=== PATIENT | female | born 1965 ===

== ENCOUNTER 2017-05-05 02:55 | Inpatient (IN) | payer MEDICARE ==
[2017-05-05 03:25] VITALS: BP 133/87
[2017-05-05 05:22] LABS: Basophils % (Auto) 0.5 % (0.0-1.8); Eosinophils % (Auto) 1.4 % (0.0-4.3); Hematocrit 36.5 % (30.3-42.9); Hemoglobin 12.2 gm/dl (10.1-14.3); Mean Corpuscular HGB Conc 33 % (30-34); Mean Corpuscular Volume 74 fl (79-97); Platelet Count 417 K/mm3 (140-440); Red Blood Count 4.92 M/mm3 (3.65-5.03); Red Cell Distribution Width 19.2 % (13.2-15.2); White Blood Count 5.3 K/mm3 (4.5-11.0)
[2017-05-05 05:29] LABS: Mean Corpuscular Hemoglobin 25 pg (28-32)
[2017-05-05 05:41] LABS: Alanine Aminotransferase 24 units/L (7-56); Albumin 4.4 g/dL (3.9-5); Alkaline Phosphatase 67 units/L (35-129); Anion Gap 17 mmol/L; BUN/Creatinine Ratio 20; Blood Urea Nitrogen 12 mg/dL (7-17); Calcium 9.1 mg/dL (8.4-10.2); Carbon Dioxide 31 mmol/L (22-30); Chloride 97.6 mmol/L (98-107); Glucose 103 mg/dL (65-100); Lipase 18 units/L (13-60); Potassium 3.4 mmol/L (3.6-5.0); Sodium 142 mmol/L (137-145); Total Protein 8.6 g/dL (6.3-8.2)
[2017-05-05 07:11] LABS: Bacteria,Urine 1+ /HPF (Negative); Bilirubin,Urine NEG (Negative); Blood,Urine NEG (Negative); Ketones,Urine NEG (Negative); Leukocyte Esterase,Urine NEG (Negative); Mucus,Urine 3+ /HPF; Nitrite,Urine NEG (Negative); Urobilinogen,Urine < 2.0 mg/dL (<2.0)
[2017-05-05] MEDS ORDERED: K-DUR PO ONE (09:06)
[2017-05-05] MEDS ORDERED: NACL 0.9% 500 ML 500 ML IV ONE (09:18)
[2017-05-05] MEDS ORDERED: CARAFATE PO ONE (09:18)
[2017-05-05] MEDS ORDERED: PEPCID IV ONE (09:18)
[2017-05-05] MEDS ORDERED: REGLAN IV ONE (09:19)
--- NOTE | 2017-05-05 09:20 | Emergency Department Report ---
ED General Adult HPI - General Chief complaint: Abdominal Pain Stated complaint: ABDOMINAL PAIN Time Seen by Provider: 05/05/17 09:01 Source: patient, EMS (ems notes not available at time of chart dictation), RN notes reviewed Mode of arrival: Ambulatory Limitations: No Limitations - History of Present Illness Initial comments: This is a 51-year-old female who was previously unknown to this provider. She endorses a past medical history of hypertension, asthma, stroke when she was in her 30s, bilateral tubal ligation. Patient presents to the ER with a complaint of dizziness, nausea, subjective unsteady gait, and abdominal pain. Her dizziness and nausea have been present for 4 days. Patient is not certain if the symptoms are constant or if they're intermittent. She cannot describe exacerbating or relieving factors. She denies loss of vision, numbness, weakness, slurred speech. She also complains of abdominal pain. The abdominal pain is diffuse. It started this morning. He does not have exacerbating or relieving factors. The patient is not sure if it radiates anywhere. Patient denies irritative and obstructive urinary symptoms, patient describes a few episodes of nonbloody, nonbilious emesis. Contrary to what is documented in the triage report, patient reports abdominal pain to me has been present for one day and not 3 days. She also incidentally describes left tooth pain, tooth #30/31, which has been present for a few days. There is no trismus, stridor, malocclusion, the pain and acute increases with palpation, range of motion, hot and cold fluids. -: Gradual Location: mouth, abdomen Quality: aching Improves with: other (per hpi) Worsens with: other (per hpi) Associated Symptoms: malaise, nausea/vomiting, weakness, other (per hpi). denies: confusion, chest pain, cough, diaphoresis, fever/chills, loss of appetite, shortness of breath, syncope - Related Data Allergies Allergy/AdvReac Type Severity Reaction Status Date / Time ondansetron Allergy Rash Verified 05/05/17 04:41 ED Review of Systems ROS: Stated complaint: ABDOMINAL PAIN Other details as noted in HPI ED Past Medical Hx - Past Medical History Previous Medical History?: Yes Hx Hypertension: Yes Hx CVA: Yes (at 33 yrs old no deficits) Hx Asthma: Yes - Social History Smoking Status: Never Smoker ED Physical Exam - General Limitations: No Limitations General appearance: alert, in no apparent distress - Head Head exam: Present: atraumatic, normocephalic - Eye Eye exam: Present: normal appearance, PERRL, EOMI, other (visual acuity intact to finger counting, color perception, reading at a close distance). Absent: nystagmus - ENT ENT exam: Present: normal exam, normal orophraynx, mucous membranes moist, normal external ear exam - Neck Neck exam: Present: normal inspection, full ROM. Absent: tenderness, meningismus - Respiratory Respiratory exam: Present: normal lung sounds bilaterally. Absent: respiratory distress, chest wall tenderness - Cardiovascular Cardiovascular Exam: Present: normal rhythm, tachycardia, normal heart sounds. Absent: systolic murmur, diastolic murmur, rubs, gallop - GI/Abdominal GI/Abdominal exam: Present: soft, normal bowel sounds. Absent: distended, tenderness, guarding, pulsatile mass - Extremities Exam Extremities exam: Present: normal inspection, full ROM, normal capillary refill. Absent: pedal edema, joint swelling, calf tenderness - Back Exam Back exam: Present: normal inspection - Neurological Exam Neurological exam: Present: alert, oriented X3, CN II-XII intact, normal gait ( normal gait, normal tandem gait, normal heel to shay, negative Romberg, no pass pointing, negative pronator drift), other (Extraocular movements intact. Tongue midline. No facial droop. Facial sensation intact to light touch in the V1, V2, V3 distribution bilaterally. 5 and 5 strength in 4 extremities.. Sensation is intact to light touch in 4 extremities.). Absent: motor sensory deficit - Psychiatric Psychiatric exam: Present: normal affect, normal mood - Skin Skin exam: Present: warm, dry, intact, normal color. Absent: rash ED Course Vital Signs 05/05/17 05/05/17 03:22 04:44 Temperature 98.1 F 98.1 F Pulse Rate 110 H 95 H Respiratory 18 18 Rate Blood Pressure 133/87 133/87 O2 Sat by Pulse 96 99 Oximetry - Reevaluation(s) Reevaluation #1: 05/05/17 09:51 Differential diagnosis, including without limited to: Stroke, dehydration, viral syndrome, enteritis, urinary tract infection, Assessment and plan: 51-year-old female with complaint of resolved abdominal pain, and nonspecific dizziness, and subjective feeling of unsteady gait. She is afebrile with reassuring vital signs with the exception of tachycardia, and walks with a steady gait and has no abnormal neurologic findings. She is somewhat tachycardic, but endorses no pulmonary embolus or DVT risk factors. EKG pending, CT scan of the brain pending, CT scan the abdomen and pelvis pending, patient will be medicated with pain medication and nausea medication, we will reassess once initial data points have resulted. NIH score of 0 this time, GCS of 15 at this time. No pulmonary embolus or DVT risk factors, low risk by well's criteria. Reevaluation #2: 05/05/17 11:35 CT scan of the abdomen and pelvis negative. CT scan of the brain is negative. Aspirin is ordered. Case presented to the Hospital physician, Dr. Veliz will accept the patient to the medical service for further evaluation to exclude subacute stroke. not A TPA candidate as patient's symptoms have been present for a few days. Given her normal neurologic examination my exam, I see no indication for emergent CT angiogram. ED Medical Decision Making - Lab Data Result diagrams: 05/05/17 05:09 05/05/17 05:09 Vital Signs 05/05/17 05/05/17 03:22 04:44 Temperature 98.1 F 98.1 F Pulse Rate 110 H 95 H Respiratory 18 18 Rate Blood Pressure 133/87 133/87 O2 Sat by Pulse 96 99 Oximetry Lab Results 05/05/17 05/05/17 05/05/17 Range/Units 05:09 05:09 05:09 WBC 5.3 (4.5-11.0) K/mm3 RBC 4.92 (3.65-5.03) M/mm3 Hgb 12.2 (10.1-14.3) gm/dl Hct 36.5 (30.3-42.9) % MCV 74 L (79-97) fl MCH 25 L (28-32) pg MCHC 33 (30-34) % RDW 19.2 H (13.2-15.2) % Plt Count 417 (140-440) K/mm3 Lymph % (Auto) 30.0 (13.4-35.0) % [place] % (Auto) 9.1 H (0.0-7.3) % Eos % (Auto) 1.4 (0.0-4.3) % Baso % (Auto) 0.5 (0.0-1.8) % Lymph # 1.6 (1.2-5.4) K/mm3 [place] # 0.5 (0.0-0.8) K/mm3 Eos # 0.1 (0.0-0.4) K/mm3 Baso # 0.0 (0.0-0.1) K/mm3 Seg Neutrophils % 59.0 (40.0-70.0) % Seg Neutrophils # 3.1 (1.8-7.7) K/mm3 Sodium 142 (137-145) mmol/L Potassium 3.4 L (3.6-5.0) mmol/L Chloride 97.6 L (98-107) mmol/L Carbon Dioxide 31 H (22-30) mmol/L Anion Gap 17 mmol/L BUN 12 (7-17) mg/dL Creatinine 0.6 L (0.7-1.2) mg/dL Estimated GFR > 60 ml/min BUN/Creatinine Ratio 20 % Glucose 103 H (65-100) mg/dL Calcium 9.1 (8.4-10.2) mg/dL Total Bilirubin 0.40 (0.1-1.2) mg/dL AST 29 (5-40) units/L ALT 24 (7-56) units/L Alkaline Phosphatase 67 (35-129) units/L Troponin T (0.00-0.029) ng/mL Total Protein 8.6 H (6.3-8.2) g/dL Albumin 4.4 (3.9-5) g/dL Albumin/Globulin Ratio 1.0 % Lipase 18 (13-60) units/L HCG, Qual Negative (Negative) Urine Color (Yellow) Urine Turbidity (Clear) Urine pH (5.0-7.0) Ur Specific [place] (1.003-1.030) Urine Protein (Negative) mg/dL Urine Glucose (UA) (Negative) mg/dL Urine Ketones (Negative) mg/dL Urine Blood (Negative) Urine Nitrite (Negative) Urine Bilirubin (Negative) Urine Urobilinogen (<2.0) mg/dL Ur Leukocyte Esterase (Negative) Urine WBC (Auto) (0.0-6.0) /HPF Urine RBC (Auto) (0.0-6.0) /HPF U Epithel Cells (Auto) (0-13.0) /HPF Urine Bacteria (Auto) (Negative) /HPF Hyaline Casts /LPF Urine Mucus /HPF 05/05/17 05/05/17 Range/Units 05:09 06:39 WBC (4.5-11.0) K/mm3 RBC (3.65-5.03) M/mm3 Hgb (10.1-14.3) gm/dl Hct (30.3-42.9) % MCV (79-97) fl MCH (28-32) pg MCHC (30-34) % RDW (13.2-15.2) % Plt Count (140-440) K/mm3 Lymph % (Auto) (13.4-35.0) % [place] % (Auto) (0.0-7.3) % Eos % (Auto) (0.0-4.3) % Baso % (Auto) (0.0-1.8) % Lymph # (1.2-5.4) K/mm3 [place] # (0.0-0.8) K/mm3 Eos # (0.0-0.4) K/mm3 Baso # (0.0-0.1) K/mm3 Seg Neutrophils % (40.0-70.0) % Seg Neutrophils # (1.8-7.7) K/mm3 Sodium (137-145) mmol/L Potassium (3.6-5.0) mmol/L Chloride (98-107) mmol/L Carbon Dioxide (22-30) mmol/L Anion Gap mmol/L BUN (7-17) mg/dL Creatinine (0.7-1.2) mg/dL Estimated GFR ml/min BUN/Creatinine Ratio % Glucose (65-100) mg/dL Calcium (8.4-10.2) mg/dL Total Bilirubin (0.1-1.2) mg/dL AST (5-40) units/L ALT (7-56) units/L Alkaline Phosphatase (35-129) units/L Troponin T < 0.010 (0.00-0.029) ng/mL Total Protein (6.3-8.2) g/dL Albumin (3.9-5) g/dL Albumin/Globulin Ratio % Lipase (13-60) units/L HCG, Qual (Negative) Urine Color Yellow (Yellow) Urine Turbidity Clear (Clear) Urine pH 5.0 (5.0-7.0) Ur Specific [place] 1.024 (1.003-1.030) Urine Protein 100 mg/dl (Negative) mg/dL Urine Glucose (UA) Neg (Negative) mg/dL Urine Ketones Neg (Negative) mg/dL Urine Blood Neg (Negative) Urine Nitrite Neg (Negative) Urine Bilirubin Neg (Negative) Urine Urobilinogen < 2.0 (<2.0) mg/dL Ur Leukocyte Esterase Neg (Negative) Urine WBC (Auto) 4.0 (0.0-6.0) /HPF Urine RBC (Auto) 2.0 (0.0-6.0) /HPF U Epithel Cells (Auto) 23.0 H (0-13.0) /HPF Urine Bacteria (Auto) 1+ (Negative) /HPF Hyaline Casts 4 /LPF Urine Mucus 3+ /HPF - EKG Data -: EKG Interpreted by Ut EKG shows normal: sinus rhythm Rate: tachycardia - EKG Data When compared to previous EKG there are: previous EKG unavailable 05/05/17 10:04 Sinus tachycardia, 102 bpm, normal axis, QTC prolonged, high left ventricular voltage, abnormal EKG, not morphologically consistent with ST elevation myocardial infarction. - Radiology Data Radiology results: pending, report reviewed, image reviewed Critical care attestation.: If time is entered above; I have spent that time in minutes in the direct care of this critically ill patient, excluding procedure time. ED Disposition Clinical Impression: Abdominal pain, History of unsteady gait Disposition: 09 OP ADMIT IP TO THIS HOSP Is pt being admited?: Yes Does the pt Need Aspirin: Yes Condition: Stable Instructions: Abdominal Pain (ED) Referrals: FABIÁN ALMANZA MD [Primary Care Provider] - 3-5 Days
[2017-05-05] MEDS ORDERED: BENTYL PO ONE (10:00)
--- NOTE | 2017-05-05 11:04 | Cat Scan Report ---
CT HEAD WITHOUT CONTRAST: HISTORY: CVA, ataxia, nausea and vomiting. TECHNIQUE: Sequential 2.5mm CT images. COMPARISON: none. FINDINGS: Cerebral Parenchyma: Within normal limits. Cerebellum: Within normal limits. Brainstem: Within normal limits. Ventricles: Normal. Sella: Normal. Extra-axial spaces: Normal. Basal Cisterns: Normal. Intracranial Hemorrhage: None. Midline Shift: None. Calvarium: Normal. Sinuses: Normal. Mastoid Air Cells: Normal. Visualized Orbits: Normal. IMPRESSION: Cranial CT scan within normal limits.
--- NOTE | 2017-05-05 11:06 | Cat Scan Report ---
CT ABDOMEN PELVIS WITH CONTRAST: HISTORY: Nausea and vomiting. COMPARISON: none. TECHNIQUE: Helical CT in 1.25mm intervals following IV contrast. Sagittal and coronal reconstructions. FINDINGS: Lung bases: Normal. Liver: Normal. Biliary system: Normal. Pancreas: Normal. Spleen: Normal. Kidneys/ureters/bladder: Normal. Adrenal glands: Normal. Aorta: Normal. Intestines: Normal. Appendix: Normal. Pelvic viscera: Normal. Ascites: None. Adenopathy: None. Musculoskeletal: Normal. IMPRESSION: Unremarkable CT scan of the abdomen and pelvis with contrast.
[2017-05-05] MEDS ORDERED: BABY ASPIRIN PO ONE (11:36)
--- NOTE | 2017-05-05 11:51 | History and Physical Report ---
History of Present Illness Chief complaint: I feel weak, and my stomach feels queasy History of present illness: 51 YO Female with HTN, CVA, Obesity, Asthma presents to ED for evaluation. Pt states that she has been feeling weak, dizzy, and nauseated over the past 4 days with persistent symptoms over the same time period. Pt also acknowledges unsteady gait. Pt denies loss of vision, numbness, weakness, slurred speech, fever, chills, CP, Palpitations, NVD, Prolonged travel/immobility, Individual/ Family history of DVT/PE. She also complains of abdominal pain. The abdominal pain is diffuse, present over the past 24 hours, nonradiating, without exacerbating or relieving factors. Pt seen and evaluated in ED and found to have symptoms suspicious for acute CVA versus complicated migraine, as well as abdominal pain. Pt admitted to telemetry. Past History Past Medical History: hypertension, stroke, other (Asthma) Past Surgical History: Other (Tubal ligation) Social history: single. denies: smoking, alcohol abuse, prescription drug abuse Family history: diabetes, hypertension Medications and Allergies Allergies Allergy/AdvReac Type Severity Reaction Status Date / Time ondansetron Allergy Rash Verified 05/05/17 04:41 Home Medications Medication Instructions Recorded Confirmed Last Taken Type amLODIPine [Norvasc] 10 mg PO DAILY 05/05/17 05/05/17 05/05/17 History Review of Systems Constitutional: weakness, no weight loss, no weight gain, no fever, no chills, no sweats Ears, nose, mouth and throat: no ear pain, no ear discharge, no tinnitis, no decreased hearing, no nose pain, no nasal congestion Breasts: no change in shape, no swelling, no mass Cardiovascular: no chest pain, no orthopnea, no palpitations, no rapid/ irregular heart beat, no edema Respiratory: no cough, no cough with sputum, no excessive sputum, no hemoptysis Gastrointestinal: abdominal pain, no nausea, no vomiting, no diarrhea, no constipation Genitourinary Female: no pelvic pain, no flank pain, no menorrhagia, no dysuria , no urinary frequency, no urgency Rectal: no pain, no incontinence, no bleeding Musculoskeletal: no neck stiffness, no neck pain, no shooting arm pain, no arm numbness/tingling, no low back pain Integumentary: no rash, no pruritis, no redness, no sores, no wounds Neurological: no paralysis, no weakness, no parathesias, no numbness, no tingling, no seizures Psychiatric: no anxiety, no memory loss, no change in sleep habits, no sleep disturbances, no insomnia, no hypersomnia Endocrine: no cold intolerance, no heat intolerance, no polyphagia, no excessive thirst, no polydipsia, no polyuria, no nocturia Hematologic/Lymphatic: no easy bruising, no easy bleeding Allergic/Immunologic: no urticaria, no allergic rhinitis, no wheezing Exam - Constitutional Vitals: Temp Pulse Resp BP Pulse Ox 98.1 F 95 H 18 133/87 99 05/05/17 04:44 05/05/17 04:44 05/05/17 04:44 05/05/17 04:44 05/05/17 04:44 General appearance: Present: mild distress - EENT Eyes: Present: PERRL ENT: hearing intact, clear oral mucosa - Neck Neck: Present: supple, normal ROM - Respiratory Respiratory effort: normal Respiratory: bilateral: CTA - Cardiovascular Heart Sounds: Present: S1 & S2. Absent: rub, click - Extremities Extremities: pulses symmetrical, No edema Peripheral Pulses: within normal limits - Abdominal General gastrointestinal: Present: soft, non-tender, non-distended, normal bowel sounds Female genitourinary: Present: normal - Integumentary Integumentary: Present: clear, warm, dry - Musculoskeletal Musculoskeletal: gait normal, strength equal bilaterally - Psychiatric Psychiatric: appropriate mood/affect, intact judgment & insight - Neurologic Neurologic: CNII-XII intact, moves all extremities Results - Labs CBC & Chem 7: 05/05/17 05:09 05/05/17 05:09 Labs: Abnormal lab results 05/05/17 05/05/17 05/05/17 Range/Units 05:09 05:09 06:39 MCV 74 L (79-97) fl MCH 25 L (28-32) pg RDW 19.2 H (13.2-15.2) % [place] % (Auto) 9.1 H (0.0-7.3) % Potassium 3.4 L (3.6-5.0) mmol/L Chloride 97.6 L (98-107) mmol/L Carbon Dioxide 31 H (22-30) mmol/L Creatinine 0.6 L (0.7-1.2) mg/dL Glucose 103 H (65-100) mg/dL Total Protein 8.6 H (6.3-8.2) g/dL U Epithel Cells (Auto) 23.0 H (0-13.0) /HPF Assessment and Plan - Patient Problems (1) CVA (cerebral vascular accident) Status: Acute Qualifiers: Precerebral and cerebral artery: middle cerebral artery Laterality of affected vessel: left Plan to address problem: Stroke protocol: CT Head, MRI Brain, MRA Brain, Echo, Carotid Doppler, Neuro checks, antiplatelet therapy, lipid panel, (2) HTN (hypertension) Status: Acute Plan to address problem: Monitor BP Q shift, Hydralazine prn after 24 hours for systolic above 175, permissive hypertension overnight (3) Abdominal pain Status: Acute Plan to address problem: CT abdomen Pelvis, serial abdominal exam. (4) DVT prophylaxis Status: Acute
[2017-05-05] MEDS ORDERED: ZOFRAN IV PRN (11:52)
[2017-05-05] MEDS ORDERED: MILK OF MAGNESIA PO PRN (11:52)
[2017-05-05] MEDS ORDERED: TYLENOL PO PRN (11:52)
[2017-05-05] MEDS ORDERED: SODIUM CHLORIDE FLUSH SYRINGE 10 ML IV PRN (11:52)
[2017-05-05] MEDS ORDERED: PHENERGAN PR PRN (11:52)
[2017-05-05] MEDS ORDERED: REGLAN PO PRN (11:52)
[2017-05-05] MEDS ORDERED: DULCOLAX PR PRN (11:52)
[2017-05-05] MEDS ORDERED: PROVENTIL IH PRN (11:52)
[2017-05-05] MEDS ORDERED: PRAVACHOL PO SCH (22:00)
[2017-05-06] MEDS ORDERED: PLAVIX PO SCH (10:00)
== END 2017-05-05 13:08 | disposition left against medical advice (07) | DRG 66 ==
LOC: ED 02:55 → 4A 11:52
PROVIDERS: ADMIT Internal Medicine; ATTEND Internal Medicine
DX: I63.9 Cerebral infarction, unspecified (principal); I10 Essential (primary) hypertension; J45.909 Unspecified asthma, uncomplicated; R26.81 Unsteadiness on feet; Z53.21 Procedure and treatment not carried out due to patient leaving prior to being seen by health care provider; E66.9 Obesity, unspecified; R10.9 Unspecified abdominal pain; Z68.36 Body mass index [BMI] 36.0-36.9, adult; Z86.711 Personal history of pulmonary embolism; Z86.718 Personal history of other venous thrombosis and embolism; Z98.51 Tubal ligation status; Z88.8 Allergy status to other drugs, medicaments and biological substances; Z86.73 Personal history of transient ischemic attack (TIA), and cerebral infarction without residual deficits
CPT/HCPCS: 36415; 70450; 74177; 80053; 81001; 83690; 83735; 84484; 84703; 85025; 93005; 93010; 96374; 96375; A9270-GY; J2765; J7040; Q9967

== ENCOUNTER 2017-05-10 03:36 | Emergency (ER) | payer MEDICARE ==
[2017-05-10 04:30] VITALS: BP 133/74
[2017-05-10 05:11] LABS: Basophils % (Auto) 0.1 % (0.0-1.8); Eosinophils % (Auto) 1.6 % (0.0-4.3); Hematocrit 35.8 % (30.3-42.9); Hemoglobin 11.7 gm/dl (10.1-14.3); Mean Corpuscular HGB Conc 33 % (30-34); Mean Corpuscular Volume 75 fl (79-97); Platelet Count 364 K/mm3 (140-440); Red Blood Count 4.78 M/mm3 (3.65-5.03); Red Cell Distribution Width 19.4 % (13.2-15.2); White Blood Count 5.5 K/mm3 (4.5-11.0)
[2017-05-10 05:12] LABS: Mean Corpuscular Hemoglobin 24 pg (28-32)
[2017-05-10 05:31] LABS: Bilirubin,Urine NEG (Negative); Blood,Urine NEG (Negative); Ketones,Urine NEG (Negative); Leukocyte Esterase,Urine SM (Negative); Mucus,Urine FEW /HPF; Nitrite,Urine NEG (Negative); RBC,Urine < 1.0 /HPF (0.0-6.0)
[2017-05-10 05:35] LABS: Alanine Aminotransferase 42 units/L (7-56); Albumin 4.2 g/dL (3.9-5); Alkaline Phosphatase 56 units/L (35-129); Anion Gap 15 mmol/L; BUN/Creatinine Ratio 28; Blood Urea Nitrogen 14 mg/dL (7-17); Calcium 8.8 mg/dL (8.4-10.2); Carbon Dioxide 30 mmol/L (22-30); Chloride 102.9 mmol/L (98-107); Glucose 104 mg/dL (65-100); Lipase 15 units/L (13-60); Potassium 3.6 mmol/L (3.6-5.0); Sodium 144 mmol/L (137-145); Total Protein 8.3 g/dL (6.3-8.2)
== END 2017-05-10 07:35 | disposition left against medical advice (07) ==
LOC: ED 03:36
DX: R11.2 Nausea with vomiting, unspecified (principal); Z53.21 Procedure and treatment not carried out due to patient leaving prior to being seen by health care provider
CPT/HCPCS: 36415; 80053; 81001; 83690; 84703; 85025

== ENCOUNTER 2017-05-17 07:42 | Emergency (ER) | payer MEDICARE ==
[2017-05-17 07:53] VITALS: BP 139/77
[2017-05-17 08:31] LABS: Bacteria,Urine 1+ /HPF (Negative); Bilirubin,Urine NEG (Negative); Blood,Urine NEG (Negative); Color,Urine Yellow (Yellow); Mucus,Urine 3+ /HPF; Nitrite,Urine NEG (Negative); Urobilinogen,Urine < 2.0 mg/dL (<2.0)
[2017-05-17 08:51] LABS: Basophils # (Auto) 0.1 K/mm3 (0.0-0.1); Basophils % (Auto) 1.3 % (0.0-1.8); Eosinophils # (Auto) 0.1 K/mm3 (0.0-0.4); Eosinophils % (Auto) 2.4 % (0.0-4.3); Hematocrit 35.1 % (30.3-42.9); Hemoglobin 11.6 gm/dl (10.1-14.3); Lymphocytes # (Auto) 1.8 K/mm3 (1.2-5.4); Lymphocytes % (Auto) 40.3 % (13.4-35.0); Mean Corpuscular HGB Conc 33 % (30-34); Mean Corpuscular Volume 77 fl (79-97); Monocytes # (Auto) 0.4 K/mm3 (0.0-0.8); Monocytes % (Auto) 9.5 % (0.0-7.3); Platelet Count 396 K/mm3 (140-440); Red Blood Count 4.59 M/mm3 (3.65-5.03); Red Cell Distribution Width 19.7 % (13.2-15.2)
[2017-05-17 08:55] LABS: Mean Corpuscular Hemoglobin 25 pg (28-32)
[2017-05-17 09:07] LABS: Alanine Aminotransferase 56 units/L (7-56); Albumin 4.2 g/dL (3.9-5); BUN/Creatinine Ratio 24; Blood Urea Nitrogen 12 mg/dL (7-17); Calcium 8.8 mg/dL (8.4-10.2); Hemolysis Index 8
== END 2017-05-17 09:20 | disposition left against medical advice (07) ==
LOC: ED 07:42
DX: R11.2 Nausea with vomiting, unspecified (principal); Z53.21 Procedure and treatment not carried out due to patient leaving prior to being seen by health care provider
CPT/HCPCS: 36415; 80053; 81001; 85025

== ENCOUNTER 2017-06-04 19:47 | Emergency (ER) | payer MEDICARE ==
[2017-06-05] MEDS ORDERED: MOTRIN PO ONE (04:48)
--- NOTE | 2017-06-05 04:48 | Emergency Department Report ---
HPI - General Chief Complaint: Fall Time Seen by Provider: 06/05/17 04:37 - HPI HPI: Patient reports that she has body aches, cough that started yesterday. She denies any fever or chills. She also says she fell on her left side after tripping. She is having body pain especially to her left thigh. Patient able to ambulate without any difficulties. She said her pain steadily 10 and aching. Denies any shortness of breath or chest pain. Denies any fever or chills. Patient has a history of asthma, CVA and hypertension. No over-the- counter medication taken per patient. Patient also requests an albuterol inhaler because she says she has asthma and she ran out. ED Past Medical Hx - Past Medical History Previous Medical History?: Yes Hx Hypertension: Yes Hx CVA: Yes (at 33 yrs old no deficits) Hx Asthma: Yes Additional medical history: Gallstones - Surgical History Past Surgical History?: Yes Additional Surgical History: Tubal - Family History Family history: hypertension - Social History Smoking Status: Never Smoker Substance Use Type: None - Medications Home Medications: Home Medications Medication Instructions Recorded Confirmed Last Taken Type amLODIPine [Norvasc] 10 mg PO DAILY 05/05/17 05/05/17 05/05/17 History Amoxicillin/K Clav Tab [Augmentin 1 tab PO Q12HR 10 Days #20 tab 06/05/17 Unknown Rx 875 mg] Cetirizine HCl [ZyrTEC] 10 mg PO QAM 14 Days #14 capsule 06/05/17 Unknown Rx Fluticasone [Flonase] 1 spray NS QDAY 14 Days #1 bottle 06/05/17 Unknown Rx Ibuprofen [Motrin] 600 mg PO Q8H PRN 5 Days #15 tablet 06/05/17 Unknown Rx ED Review of Systems ROS: Stated complaint: BODYACHE Other details as noted in HPI Comment: All other systems reviewed and negative Constitutional: no symptoms reported Eyes: denies: vision change ENT: congestion. denies: ear pain, throat pain, epistaxis Respiratory: cough. denies: orthopnea, shortness of breath, SOB with exertion, SOB at rest, stridor, wheezing Cardiovascular: denies: chest pain, palpitations, dyspnea on exertion, orthopnea , edema, syncope, paroxysmal nocturnal dyspnea Gastrointestinal: denies: abdominal pain, nausea, vomiting, diarrhea, constipation, hematemesis, melena, hematochezia Genitourinary: denies: dysuria, hematuria Musculoskeletal: arthralgia, myalgia. denies: back pain, joint swelling Skin: denies: rash Neurological: denies: headache, weakness, numbness, paresthesias, confusion, abnormal gait, vertigo Physical Exam - Physical Exam Vital Signs: Vital Signs 06/04/17 06/04/17 19:49 19:58 Temperature 98.0 F 98.0 F Pulse Rate 94 H 96 H Respiratory 18 19 Rate Blood Pressure 162/86 162/86 O2 Sat by Pulse 98 98 Oximetry General: This is a 51-year-old female well-nourished well-developed in no acute distress. Physical Exam: Head: Normocephalic, atraumatic, no abrasion, no bruising and no contusion. Eyes: Biateral pupils equal and reactive to light, bilateral EOM intact.. Bilateral conjunctival and sclera without injection, normal accommodation. No nystagmus Mouth: Moist, no pharyngeal exudate or erythema. No peritonsillar abscesses. Uvula is midline and oral airways patent. Ears: TM congested without erythema. Bilateral EAC without any redness swelling or drainage. No mastoid bone tenderness Nose: Bilateral nasal turbinates congested with erythema and clear drainage. Maxillary and frontal sinuses non-tender to palpate. Neck: Supple, No Cervical adenopathy, full range of motion and no C-spine tenderness. No swelling or tracheal deviation normal reflexes Cardiovascular: S1, S2. Regular rate and rhythm. No murmur. Capillary refill is less then 3 seconds. Lungs: Clear to auscultate bilaterally. No rhonchi, wheezes or rales. No chest wall tenderness. No chest contusion. No bruising to chest. MSK: Strength 5/5 in all extremities. No joint deformity or crepitus. Normal inspection. Full range of motion to all extremities. No laceration, abrasion or ecchymotic area noted. Patient able to fully flex and extend bilateral knees without any difficulties. Bilateral knees nontender to palpate. Abdomen: Non-tender to palpate in all quadrants, no guarding or rebound tenderness, positive bowel sounds in all quadrants. No CVA tenderness. No hernia, bruit or mass. No rigidity or distention. Extremities: No clubbing, cyanosis or edema. +2 pulses. No neurovascular compromise Skin: Clean, dry and intact. No rash or lesions. Neurological: GCS at 15, Pt is alert and oriented 3 speech is clear . Bilateral hand cleaner operator strong and equal. Normal gait. Negative Romberg and no pronator drift. Normal Reflexes. No motor or sensory deficit Back: No vertebral tenderness, no paraspinal tenderness. Normal inspection Psych: Normal mood and behavior ED Course Vital Signs 06/04/17 06/04/17 19:49 19:58 Temperature 98.0 F 98.0 F Pulse Rate 94 H 96 H Respiratory 18 19 Rate Blood Pressure 162/86 162/86 O2 Sat by Pulse 98 98 Oximetry - Reevaluation(s) Reevaluation #1: 06/05/17 05:58 Patient is stable and she was given Motrin 800 mg in the emergency room for pain. ED Medical Decision Making - Medical Decision Making ED course: Patient here report that she has a cold and also fell he and injured her left side complaining of left thigh pain. Physical findings were normal extremities. Patient also has upper respiratory tract infection with cough and congestion and with asthma without any exacerbation. I discussed patient that I will place her on Zyrtec, Flonase. I told her give her prescription for albuterol to take as needed for cough and wheezing. I also discussed with her that I'll give her a prescription for Augmentin and if she is not better with the Zyrtec Flonase then she can add Augmentin. Patient given Motrin 800 mg in emergency room for musculoskeletal pain. Discharged home from emergency room in stable condition with prescription for Zyrtec, Flonase, Augmentin and Motrin. She was given a refill on albuterol inhaler Critical care attestation.: If time is entered above; I have spent that time in minutes in the direct care of this critically ill patient, excluding procedure time. ED Disposition Clinical Impression: Upper respiratory infection with cough and congestion, Arthralgia of left thigh , Fall from ground level Disposition: DC-01 TO HOME OR SELFCARE Is pt being admited?: No Does the pt Need Aspirin: No Condition: Stable Instructions: Asthma (ED), Fall Prevention (ED), Musculoskeletal Pain (ED), Upper Respiratory Infection (ED), Acute Cough (ED) Additional Instructions: Please follow up with a primary care physician on 06/06/2017. increase her fluid intake Take antibiotic only if Zyrtec and Flonase does not work. Follow-up with orthopedic doctor as instructed. Take Motrin as ordered for pain Prescriptions: Amoxicillin/K Clav Tab [Augmentin 875 mg] 1 tab PO Q12HR 10 Days #20 tab Cetirizine HCl [ZyrTEC] 10 mg PO QAM 14 Days #14 capsule Fluticasone [Flonase] 1 spray NS QDAY 14 Days #1 bottle Ibuprofen [Motrin] 600 mg PO Q8H PRN 5 Days #15 tablet PRN Reason: Pain Referrals: WILMER FRAGOSO [Other] - 06/06/17 RAMONITA BLANTON MD [Staff Physician] - 3-5 Days
[2017-06-05 06:49] VITALS: BP 154/88
== END 2017-06-05 06:47 | disposition home or self-care (01) ==
LOC: ED 19:47
DX: J06.9 Acute upper respiratory infection, unspecified (principal); M79.652 Pain in left thigh; I10 Essential (primary) hypertension; J45.909 Unspecified asthma, uncomplicated; Z86.73 Personal history of transient ischemic attack (TIA), and cerebral infarction without residual deficits; Z88.8 Allergy status to other drugs, medicaments and biological substances; Z91.018 Allergy to other foods; W01.0XXA Fall on same level from slipping, tripping and stumbling without subsequent striking against object, initial encounter; Y93.89 Activity, other specified; Y99.8 Other external cause status; Y92.89 Other specified places as the place of occurrence of the external cause
CPT/HCPCS: 99282